=== PATIENT | male | born 1995 | race African-American/Black ===

== ENCOUNTER 2016-10-31 15:48 | Emergency (ER) | payer OTHER ==
[~2016-10-31] VITALS: Ht 180.3 cm; Wt 86.0 kg
[2016-10-31 15:49] VITALS: BP 130/85; PULSE 64; RESP 20; TEMP 98; O2SAT 99
[2016-10-31] MEDS ORDERED: IBUP800T23 PO (18:16)
[2016-10-31] MEDS ORDERED: CYCL1TAB29 PO (18:16)
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
== END 2016-10-31 18:29 | disposition home or self-care (01) ==
LOC: NEPB 15:48
DX: S39.012A Strain of muscle, fascia and tendon of lower back, initial encounter (principal); M62.838 Other muscle spasm; V43.62XA Car passenger injured in collision with other type car in traffic accident, initial encounter; Y93.I9 Activity, other involving external motion; Y92.410 Unspecified street and highway as the place of occurrence of the external cause
CPT/HCPCS: 99282